=== PATIENT | female | born 1960 | race Caucasian/White ===

== ENCOUNTER 2019-03-11 17:18 | Emergency (ER) | payer OTHER ==
[2019-03-11] MEDS ORDERED: Acetaminophen TAB* 325 MG PO ONE (17:31)
--- NOTE | 2019-03-11 17:33 | UC ---
Lower Extremity/Ankle HPI - HPI Summary HPI Summary: 1 hour ago, pt tripped going down step and twisted R ankle, now has pain lateral foot and ankle. can bear weight but with great pain. states she heard a "pop" - History of Current Complaint Stated Complaint: RIGHT ANKLE INJURY Time Seen by Provider: 03/11/19 17:19 Hx Obtained From: Patient ?: No Onset/Duration: Sudden Onset Severity Initially: Severe Severity Currently: Moderate Aggravating Factor(s): Standing, Ambulation Alleviating Factor(s): Elevation, Ice Able to Bear Weight: Yes - Allergies/Home Medications Allergies/Adverse Reactions: Allergies Allergy/AdvReac Type Severity Reaction Status Date / Time NSAIDS (Non-Steroidal Allergy Unknown Verified 03/11/19 17:39 Anti-Inflamma Reaction Details Home Medications: Home Medications Albuterol HFA INHALER* [Ventolin HFA Inhaler*] 1 puff INH Q4H PRN 03/11/19 [ History Confirmed 03/11/19] Fluticasone Propionate Diskus [Flovent Diskus] 50 mcg IH DAILY 03/11/19 [ History Confirmed 03/11/19] Hydrochlorothiazide TAB* [Hydrodiuril TAB*] 25 mg PO DAILY 03/11/19 [History Confirmed 03/11/19] Irbesartan 75 mg PO DAILY 03/11/19 [History Confirmed 03/11/19] Melatonin 6 mg PO BEDTIME 03/11/19 [History Confirmed 03/11/19] Nadolol [Corgard] 20 mg PO DAILY 03/11/19 [History Confirmed 03/11/19] PMH/Surg Hx/FS Hx/Imm Hx Previously Healthy: Yes Cardiovascular History: Hypertension Respiratory History: Asthma - Family History Known Family History: Positive: Non-Contributory - Social History Occupation: Unemployed Lives: With Family Alcohol Use: Rare Substance Use Type: None Smoking Status (MU): Never Smoked Tobacco Review of Systems All Other Systems Reviewed And Are Negative: Yes Constitutional: Positive: Negative Respiratory: Positive: Negative Cardiovascular: Positive: Negative Musculoskeletal: Positive: Decreased ROM - R ankle Neurological: Positive: Negative Psychological: Positive: Negative Is Patient Immunocompromised?: No Physical Exam Triage Information Reviewed: Yes Appearance: Well-Appearing, Obese Vital Signs Reviewed: Yes Respiratory Exam: Normal Respiratory: Positive: Lungs clear Cardiovascular Exam: Normal Cardiovascular: Positive: RRR, Pulses Normal Musculoskeletal: Positive: ROM Limited @ - R ankle d/t pain, Other: - pain with palpation lateral R foot and lateral malleolus, ecchymosis latral foot, sweeling ankle Neurological Exam: Normal Psychological Exam: Normal Procedures - Splinting Right Lower Extremity Hand-Made Type: orthoglass Splint: posterior short leg Pre-Proc Neuro Vasc Exam: normal Post-Proc Neuro Vasc Exam: normal Lower Extremity Course/Dx - Differential Dx/Diagnosis Differential Diagnosis/HQI/PQRI: Fracture (Closed), Sprain, Strain Provider Diagnosis: Foot fracture, right, Fibula fracture Discharge - Sign-Out/Discharge Documenting (check all that apply): Patient Departure All imaging exams completed and their final reports reviewed: No - Discharge Plan Condition: Stable Disposition: HOME Patient Education Materials: Ankle Fracture (ED), Foot Fracture in Adults (ED) Referrals: Nohelia Hamlin NP [Primary Care Provider] - Mac Bledsoe MD [Medical Doctor] - Additional Instructions: ice and elevate leg use Tylenol as directed for pain do not put weight on foot, use crutches follow-up with orthopedics: call on Wednesday your x-rays will be read by the radiologist tomorrow and we will contact you if they find anything other than what we told you today - Billing Disposition and Condition Condition: STABLE Disposition: Home - Attestation Statements Provider Attestation: I was available for consult. This patient was seen by the RENETTA. The patient was not presented to, seen by, or examined by me. -Charan
[2019-03-11 17:45] VITALS: BP 140/82
--- NOTE | 2019-03-12 08:24 | UC ---
- Progress Note Progress Note: Patient Name: ANITHA SHER Medical Record#: [id number] Ordering Physician: Lev Romero NP Acct.#: [id number] : 1960 Age: 59 Sex: F Location: [facility] Exam Date: 03/11/19 1723 ADM Status: [facility] ER Order Information: ANKLE RIGHT 3+VWS Accession Number: [id number] CPT: 77512 Indication: Right ankle injury 3 views of the right ankle demonstrates avulsion fracture of the distal fibula. Ankle mortise is intact. Soft tissue swelling is noted laterally. IMPRESSION: Avulsion fracture distal fibula. Soft tissue swelling is noted laterally. R1F Preliminary Imaging Read R1F <Electronically signed by Sophia Youngblood MD in OV> 03/12/19741 Dictated By: Sophia Youngblood MD Dictated Date/Time: 03/12/19741 Transcribed Date/Time: 03/12/19740 Copy to: CC:Libertad Lowe MD; Nohelia Hamlin NP; Lev Romero NP Imaging - [facility] Imaging - [facility] [address] [address] ph ([phone]) ph ([phone]) ph ([phone]) This report is only to be considered final once signed by the Provider(s) as displayed in the "<Electronically Signed by >" field (s). Absence of a signature indicates the report is in a draft status and still needs to be finalized. In the event this document was created by someone other than the signing Provider, the individual initiating the document will be listed in the "Entered by:" or "Dictated by:" quiroz. 1 of 1 Patient Name: ANITHA SHER Medical Record#: [id number] Ordering Physician: Lev Romreo NP Acct.#: [id number] : 1960 Age: 59 Sex: F Location: [facility] Exam Date: 03/11/19 1723 ADM Status: DEP ER Order Information: FOOT RIGHT 3+ VWS Accession Number: [id number] CPT: 21885 Indication: Right foot pain 3 views of the right foot demonstrates fracture at the base of the fifth metatarsal. No other fractures are identified. IMPRESSION: Fracture base of the fifth metatarsal. R1F Preliminary Imaging Read R1F <Electronically signed by Sophia Youngblood MD in OV> 03/12/19742 Dictated By: Sophia Youngblood MD Dictated Date/Time: 03/12/19742 Transcribed Date/Time: 03/12/19741 Copy to: CC:Libertad Lowe MD; Nohelia Hamlin NP; Lev Romero NP Imaging - [facility] Imaging - [facility] [address] [place] [address] ph ([phone]) ph ([phone]) ph ([phone]) This report is only to be considered final once signed by the Provider(s) as displayed in the "<Electronically Signed by >" field (s). Absence of a signature indicates the report is in a draft status and still needs to be finalized. In the event this document was created by someone other than the signing Provider, the individual initiating the document will be listed in the "Entered by:" or "Dictated by:" quiroz. 1 of 1 Course/Dx - Diagnoses Provider Diagnoses: Foot fracture, right, Fibula fracture Discharge - Sign-Out/Discharge Documenting (check all that apply): Post-Discharge Follow Up All imaging exams completed and their final reports reviewed: Yes - Discharge Plan Condition: Stable Disposition: HOME Patient Education Materials: Ankle Fracture (ED), Foot Fracture in Adults (ED) Referrals: Mac Bledsoe MD [Medical Doctor] - Nohelia Hamlin NP [Primary Care Provider] - Additional Instructions: ice and elevate leg use Tylenol as directed for pain do not put weight on foot, use crutches follow-up with orthopedics: call on Wednesday your x-rays will be read by the radiologist tomorrow and we will contact you if they find anything other than what we told you today - Billing Disposition and Condition Condition: STABLE Disposition: Home
== END 2019-03-11 19:00 | disposition home or self-care (01) ==
LOC: UCEAST 17:18
DX: S92.351A Displaced fracture of fifth metatarsal bone, right foot, initial encounter for closed fracture (principal); S82.831A Other fracture of upper and lower end of right fibula, initial encounter for closed fracture; W10.9XXA Fall (on) (from) unspecified stairs and steps, initial encounter; Y92.9 Unspecified place or not applicable; I10 Essential (primary) hypertension; E66.9 Obesity, unspecified
CPT/HCPCS: 99213; A9270-GY; G0463

== ENCOUNTER 2019-08-15 16:43 | Emergency (ER) | payer OTHER ==
--- OUTSIDE RECORDS SUMMARY | 2019-08-15 16:50 | XMS REPORT | Continuity of Care Document ---
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 Onset: 07/10/2014 Essential hypertension Nohelia Hamlin, N.P. Onset: 08/04/2016 Achilles tendinitis, right leg Cuba Freire MD Onset: 06/07/2019 Closed fracture of metatarsal bone Cuba Freire MD Onset: 03/15/2019 Closed fracture of lateral malleolus Cuba Freire MD Onset: 03/15/2019 Social History Type Date Description Comments Sex Unknown ETOH Use Denies alcohol use Tobacco Use Start: Unknown Patient has never smoked Smoking Status Reviewed: 08/03/19 Patient has never smoked Allergies, Adverse Reactions, Alerts Active Allergies Reaction Severity Comments Date NSAIDs 04/25/2014 Inactive Allergies NKDA 12/24/2010 Medications Active Medications SIG Qnty Indications Ordering Date Provider Azithromycin take 2 tablets 6tabs R05 Chely 08/03/2019 250mg Tablets on day 1, then 1 MD Carter tab daily for days 2-5 Irbesartan take 1 tablet by 30tabs I10 Nohelia Childersyusuf, 04/07/2018 75mg Tablets mouth every N.P. morning Astelin 1-2 intranasal 30units Nohelia Childersyusuf, 09/17/2016 137mcg/[place] Solution puffs daily N.P. Nystop after cleansing 30units Nohelia Hamlin, 10/12/2014 [id number]/GM Powder and drying the N.P. affected area, apply the powder. use 2-3 times daily for 7 days. Ventolin HFA 2 puffs by mouth 8gm Nohelia Childersyusuf, 08/24/2014 108(90Base) four times a day N.P. mcg/Act Aerosol as needed Flovent HFA 2 puffs inhaled 12units Nohelia Childersyusuf, 10/07/2012 110mcg/Act Aerosol twice a day N.P. Omeprazole as Needed Unknown 20mg Capsules DR Melatonin 1 tablets at bed Unknown 5mg Capsules time Nadolol take 1 tablet by 90tabs Nohelia Hamlin, 20mg Tablets mouth once daily N.P. Hydrochlorothiazide take 1 tablet by 90tabs Nohelia Hamlin, 25mg mouth once daily N.P. Tablets Immunizations CPT Code Status Date Vaccine Lot # [id number] Given 10/07/2012 Fluvirin Im 3Yrs And Older [id number] 98129 Given 09/19/2009 Influenza Virus Vaccine, Pandemic Formulation 16316 Given 09/19/2009 Influenza Virus 3Yrs & Over 36618 Given 09/19/2009 Administration Swine Flu Shot 28691 Given 10/18/2007 Tdap - Tetanus/Diptheria/Acellular Pertussis 62964 Given 10/18/2007 Tdap - Tetanus/Diptheria/Acellular Pertussis 60058 Given 06/28/2006 Influenza Virus 3Yrs & Over 05154 Given 06/28/2006 Influenza Virus 3Yrs & Over Vital Signs Date Vital Result Comment 08/03/2019 3:47pm Body Temperature 98.4 F 08/03/2019 3:33pm Height 65.5 inches 5'5.50" Weight 205.25 lb Heart Rate 79 /min BP Systolic Sitting 150 mmHg BP Diastolic Sitting 80 mmHg O2 % BldC Oximetry 98 % BMI (Body Mass Index) 33.6 kg/m2 Results Description No Information Available Procedures Date Code Description Status 09/27/2009 96029081 Mammogram Completed Medical Devices Description No Information Available Encounters Type Date Location Provider Dx Diagnosis Office Visit 06/07/2019 [facility] [place] Freire, M76.61 Achilles 3:30p at [place] tendinitis, right leg S82.64xD Nondisp fx of lateral malleolus of r fibula, 7thD S92.351D Disp fx of 5th metatarsal bone, r ft, 7thD Office Visit 04/26/2019 [place] Freire, S82.64xD Nondisp fx of 1:30p Orthopedics at [facility] malleolus of r fibula, 7thD S92.351D Disp fx of 5th metatarsal bone, r ft, 7thD Office Visit 03/31/2019 1:40p Care Provider Internal Nohelia Hamlin, I10 Essential ( primary) Medicine - [facility] N.P. hypertension J45.20 Mild intermittent asthma, uncomplicated Office Visit 03/15/2019 [place] Freire, S82.64xA Nondisp fx of 2:45p Orthopedics at [facility] malleolus of right fibula, init S92.351A Disp fx of fifth metatarsal bone, right foot, init Assessments Date Code Description Provider 08/03/2019 R05 Cough Chely Machado MD 08/03/2019 I10 Essential (primary) hypertension Chely Machado MD 08/03/2019 J45.20 Mild intermittent asthma, uncomplicated Chely Machado MD 06/07/2019 M76.61 Achilles tendinitis, right leg [place] Freire MD 06/07/2019 S82.64xD Nondisplaced fracture of lateral malleolus of [place] Freire MD right fibula, subsequent encounter for closed fracture with routine healing 06/07/2019 S92.351D Displaced fracture of fifth metatarsal bone, [place] Freire MD right foot, subsequent encounter for fracture with routine healing 04/26/2019 S82.64xD Nondisplaced fracture of lateral malleolus of [place] Freire MD right fibula, subsequent encounter for closed fracture with routine healing 04/26/2019 S92.351D Displaced fracture of fifth metatarsal bone, [place] Freire MD right foot, subsequent encounter for fracture with routine healing 03/31/2019 I10 Essential (primary) hypertension Nohelia Hamlin, N.P. 03/31/2019 J45.20 Mild intermittent asthma, uncomplicated Nohelia Hamlin N.P. 03/15/2019 S82.64xA Nondisplaced fracture of lateral malleolus of [place] Freire MD right fibula, 03/15/2019 S92.351A Displaced fracture of fifth metatarsal bone, [place] Freire MD right foot, ini Plan of Treatment Future Appointment(s):08/09/2019 2:20 pm - [facility]P. [facility] - Chely Machado, MDR05 CoughNew Medication: Azithromycin 250 mg - take 2 tablets on day 1, then 1 tab daily for days 2-5I10 Essential (primary) jftubqxcnyapZ00.20 Mild intermittent asthma, uncomplicated Functional Status Description No Information Available Mental Status Description No Information Available Referrals Description No Information Available
--- OUTSIDE RECORDS SUMMARY | 2019-08-15 16:50 | XMS REPORT | Continuity of Care Document ---
:1960 External Reference #:[id number] Author Name Nohelia Hamlin N.P. (transmitted by agent of provider Carolina Adams) Address [address], [place] [address] Care Team Providers Name Role Phone Gregoria Schmitt MD - Internal Care Team Information Business Management Consultant [phone] Medicine Problems Active Problems Provider Date Benign essential hypertension Dianelys Cannon M.D., FACP Onset: 12/24/2010 Asthma without status asthmaticus Dianelys Cannon M.D., FACP Onset: 12/24/2010 Benign paroxysmal positional vertigo Dianelys Cannon M.D., FACP Onset: 2010 Anemia Dianelys Cannon M.D., FACP Onset: 12/24/2010 Migraine Dianelys Cannon M.D., FACP Onset: 12/24/2010 Basal cell carcinoma of skin Nohelia Hamlin N.PMaggie Onset: 07/10/2014 Essential hypertension Nohelia Hamlin N.Ar Onset: 08/04/2016 Achilles tendinitis, right leg Cuba Freire MD Onset: 06/07/2019 Closed fracture of metatarsal bone Cuba Freire MD Onset: 03/15/2019 Closed fracture of lateral malleolus Cuba Freire MD Onset: 03/15/2019 Social History Type Date Description Comments Sex Unknown ETOH Use Denies alcohol use Tobacco Use Start: Unknown Patient has never smoked Smoking Status Reviewed: 08/08/19 Patient has never smoked Allergies, Adverse Reactions, Alerts Active Allergies Reaction Severity Comments Date NSAIDs 04/25/2014 Inactive Allergies NKDA 12/24/2010 Medications Active Medications SIG Qnty Indications Ordering Date Provider Prednisone 4 tablets by 40tabs J45.21 Nohelia Hamlin, 08/08/2019 10mg Tablets mouth for 4 N.P. days,3 tablets by mouth for 4 days, 2 tablets by mouth for 4 days, 1 tablet by mouth for 4 days Ipratropium 1 vial in 180ml J45.21 Nohelia Childersyusuf, 08/08/2019 [place]/Albuterol Sulfate nebulizer three N.P. times a day as 0.5-2.5(3)mg/3ML Solution needed for asthma Nebulizer Use tid prn 1unca J45.21 Nohelia Yakelin, 08/08/2019 [facility] asthma N.P. Nebulizer to use with 1unca J45.21 Nohelia Childersyusuf, 08/08/2019 Kit/Tubing/Mouthpiece nebulizer N.P. Kit Azithromycin take 2 tablets 6tabs R05 Chely 08/03/2019 250mg Tablets on day 1, then 1 MD Carter tab daily for days 2-5 Irbesartan take 1 tablet by 30tabs I10 Nohelia Hamlin, 04/07/2018 75mg Tablets mouth every N.P. morning Astelin 1-2 intranasal 30un Nohelia Yakelin, 09/17/2016 137mcg/[place] Solution puffs daily N.P. Nystop after cleansing 30un Nohelia Yakelin, 10/12/2014 330952Scjw/GM Powder and drying the N.P. affected area, apply the powder. use 2-3 times daily for 7 days. Ventolin HFA 2 puffs by mouth 8gm Nohelia Hamlin, 08/24/2014 108(90Base) four times a day N.P. mcg/Act Aerosol as needed Flovent HFA 2 puffs inhaled 12un Nohelia Hamlin, 10/07/2012 110mcg/Act Aerosol twice a day N.P. Omeprazole as Needed Unknown 20mg Capsules DR Melatonin 1 tablets at bed Unknown 5mg Capsules time Nadolol take 1 tablet by 90tabs Nohelia Varn, 20mg Tablets mouth once daily N.P. Hydrochlorothiazide take 1 tablet by 90tabs Nohelia Yakelin, 25mg mouth once daily N.P. Tablets Immunizations CPT Code Status Date Vaccine Lot # [id number] Given 10/07/2012 Fluvirin Im 3Yrs And Older [id number] 75278 Given 09/19/2009 Influenza Virus Vaccine, Pandemic Formulation 18033 Given 09/19/2009 Influenza Virus 3Yrs & Over 24384 Given 09/19/2009 Administration Swine Flu Shot 86599 Given 10/18/2007 Tdap - Tetanus/Diptheria/Acellular Pertussis 35704 Given 10/18/2007 Tdap - Tetanus/Diptheria/Acellular Pertussis 05666 Given 06/28/2006 Influenza Virus 3Yrs & Over 98613 Given 06/28/2006 Influenza Virus 3Yrs & Over Vital Signs Date Vital Result Comment 08/08/2019 2:05pm Weight 204.25 lb Heart Rate 72 /min BP Systolic Sitting 133 mmHg BP Diastolic Sitting 88 mmHg Body Temperature 98.3 F O2 % BldC Oximetry 97 % 08/03/2019 3:47pm Body Temperature 98.4 F Results Description No Information Available Procedures Date Code Description Status 09/27/2009 [id number] Mammogram Completed Medical Devices Description No Information Available Encounters Type Date Location Provider Dx Diagnosis Office Visit 06/07/2019 [facility] Cuba Tani, M76.61 Achilles 3:30p at [place] tendinitis, right leg S82.64xD Nondisp fx of lateral malleolus of r fibula, 7thD S92.351D Disp fx of 5th metatarsal bone, r ft, 7thD Office Visit 04/26/2019 [place] Freire, S82.64xD Nondisp fx of 1:30p Orthopedics at [facility] malleolus of r fibula, 7thD S92.351D Disp fx of 5th metatarsal bone, r ft, 7thD Office Visit 03/31/2019 1:40p Lab Rep Internal Nohelia Hamlin, I10 Essential ( primary) Medicine - Ccmob N.P. hypertension J45.20 Mild intermittent asthma, uncomplicated Office Visit 03/15/2019 [place] Freire, S82.64xA Nondisp fx of 2:45p Orthopedics at [facility] malleolus of right fibula, init S92.351A Disp fx of fifth metatarsal bone, right foot, init Assessments Date Code Description Provider 08/08/2019 J45.21 Mild intermittent asthma with (acute) Nohelia Varn, N.P. exacerbation 08/03/2019 R05 Cough Chely Machado MD 08/03/2019 [...] 03/31/2019 J45.20 Mild intermittent asthma, uncomplicated Nohelia Hamlin, N.P. 03/15/2019 S82.64xA Nondisplaced fracture of lateral malleolus of [place] Freire MD right fibula, 03/15/2019 S92.351A Displaced fracture of fifth metatarsal bone, [place] Freire MD right foot, ini Plan of Treatment 08/08/2019 - Nohelia Varn, N.P.J45.21 Mild intermittent asthma with (acute) exacerbationNew Medication:Prednisone 10 mg - 4 tablets by mouth for 4 days,3 tablets by mouth for 4 days, 2 tablets by mouth for 4 days, 1 tablet by mouth for 4 daysIpratropium [place]/Albuterol Sulfate 0.5-2.5(3) mg/3ML - 1 vial in nebulizer three times a day as needed for asthmaNebulizer - Use tid prn asthmaNebulizer Kit/Tubing/Mouthpiece - to use with nebulizerComments:For your asthma flare I have prescribed a course of Prednisone 10 mg. Take 4 tablets for 4 days, 3 tablets fro 4 days, 2 tablets for 4 days, then 1 tablet for 4 days. I have prescribed a nebulizer, usethis 3 times daily as needed.If you do not gradually improve, please contact the office. Functional Status Description No Information Available Mental Status Description No Information Available Referrals Description No Information Available
--- OUTSIDE RECORDS SUMMARY | 2019-08-15 16:50 | XMS REPORT | Continuity of Care Document ---
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 Medicine Problems Active Problems Provider Date Benign [...] Patient has never smoked Smoking Status Reviewed: 08/15/19 Patient has never smoked Allergies, Adverse Reactions, Alerts Active Allergies Reaction Severity Comments Date NSAIDs 04/25/2014 Inactive Allergies NKDA 12/24/2010 Medications Active Medications SIG Qnty Indications Ordering Date Provider Prednisone 4 tablets by 40tabs J45.21 Dianelys Cannon, 08/08/2019 10mg Tablets mouth for 4 M.D., FACP days,3 tablets by mouth for 4 days, 2 tablets by mouth for 4 days, 1 tablet by mouth for 4 days Ipratropium 1 vial in 180ml J45.21 Nohelia Yakelin, 08/08/2019 [place]/Albuterol Sulfate nebulizer three N.P. times a day as 0.5-2.5(3)mg/3ML Solution needed for asthma Nebulizer Use tid prn 1unca J45.21 Nohelia Yakelin, 08/08/2019 [facility] [place] N.P. Nebulizer to use with 1unca J45.21 Nohelia Yakelin, 08/08/2019 Kit/Tubing/Mouthpiece nebulizer N.P. Kit Irbesartan take 1 tablet by 30tabs I10 Nohelia Hamlin, 04/07/2018 75mg Tablets mouth every N.P. morning Astelin 1-2 intranasal 30units Nohelia Hamlin, 09/17/2016 137mcg/Mondamin Solution puffs daily N.P. Nystop after cleansing 30units Nohelia Hamlin, 10/12/2014 [id number]/GM Powder and drying the N.P. affected area, apply the powder. use 2-3 times daily for 7 days. Ventolin HFA 2 puffs by mouth 8gm Nohelia Hamlin, 08/24/2014 108(90Base) four times a day N.P. mcg/Act Aerosol as needed Flovent HFA 2 puffs inhaled 12units Nohelia Hamlin, 10/07/2012 110mcg/Act Aerosol three times a N.P. day Omeprazole as Needed Unknown 20mg Capsules DR Melatonin 1 tablets at bed Unknown 5mg Capsules time Nadolol take 1 tablet by 90tabs Nohelia Hamlin, 20mg Tablets mouth once daily N.P. Hydrochlorothiazide take 1 tablet by 90tabs Nohelia Hamlin, 25mg mouth once daily N.P. Tablets History Medications Azithromycin take 2 tablets on 6tabs R05 Chely Machado, 08/03/2019 - 250mg day 1, then 1 tab MD 08/15/2019 Tablets daily for days 2-5 Immunizations CPT Code Status Date Vaccine Lot # [id number] Given 10/07/2012 Fluvirin Im 3Yrs And Older [id number] Given 09/19/2009 Influenza Virus Vaccine, Pandemic Formulation 25517 Given 09/19/2009 Influenza Virus 3Yrs & Over 36541 Given 09/19/2009 Administration Swine Flu Shot 73970 Given 10/18/2007 Tdap - Tetanus/Diptheria/Acellular Pertussis 09284 Given 10/18/2007 Tdap - Tetanus/Diptheria/Acellular Pertussis 28870 Given 06/28/2006 Influenza Virus 3Yrs & Over 06829 Given 06/28/2006 Influenza Virus 3Yrs & Over Vital Signs Date Vital Result Comment 08/15/2019 3:15pm Height 65.5 inches 5'5.50" Weight 203.38 lb Heart Rate 114 /min BP Systolic 170 mmHg 160/111 BP Diastolic 107 mmHg 160/111 Body Temperature 99.4 F O2 % BldC Oximetry 95 % BMI (Body Mass Index) 33.3 kg/m2 08/08/2019 2:05pm Weight 204.25 lb Heart Rate 72 /min BP Systolic Sitting 133 mmHg BP Diastolic Sitting 88 mmHg Body Temperature 98.3 F O2 % BldC Oximetry 97 % Results Description No Information Available Procedures Date Code Description Status 09/27/2009 44496648 Mammogram Completed Medical Devices Description No Information Available Encounters Type Date Location Provider Dx Diagnosis Office Visit 06/07/2019 [facility] Cubamariel Freire, M76.61 Achilles 3:30p at [place] tendinitis, right leg S82.64xD Nondisp fx of lateral malleolus of r fibula, 7thD S92.351D Disp fx of 5th metatarsal bone, r ft, 7thD Office Visit 04/26/2019 Ryan Freire, S82.64xD Nondisp fx of 1:30p Orthopedics at lateral [place] malleolus of r fibula, 7thD S92.351D Disp fx of 5th metatarsal bone, r ft, 7thD Office Visit 03/31/2019 1:40p [facility] Nohelia Varn, I10 Essential ( primary) Medicine - Ccmob N.P. hypertension J45.20 Mild intermittent asthma, uncomplicated Office Visit 03/15/2019 Ryan Freire, S82.64xA Nondisp fx of 2:45p Orthopedics at [facility] [place] [place] malleolus of right fibula, init S92.351A Disp fx of fifth metatarsal bone, right foot, init Assessments Date Code Description Provider 08/15/2019 R05 Cough Dianelys Cannon M.D., FACP 08/08/2019 J45.21 Mild intermittent asthma with (acute) Nohelia Varn, N.P. exacerbation 08/03/2019 R05 Cough Chely Machado MD 08/03/2019 I10 Essential (primary) hypertension Chely Machado MD 08/03/2019 J45.20 Mild intermittent asthma, uncomplicated Chely Machado MD 06/07/2019 M76.61 Achilles tendinitis, right leg [place] Freire MD 06/07/2019 S82.64xD Nondisplaced fracture of jenn Freire MD malleolus of right fibula, subsequent encounter for closed fracture with routine healing 06/07/2019 S92.351D Displaced fracture of margarita Freire MD bone, right foot, subsequent encounter for fracture with routine healing 04/26/2019 S82.64xD Nondisplaced fracture of jenn Freire MD malleolus of right fibula, subsequent encounter for closed fracture with routine healing 04/26/2019 S92.351D Displaced fracture of margarita Freire MD bone, right foot, subsequent encounter for fracture with routine healing 03/31/2019 I10 Essential (primary) hypertension Nohelia Hamlin, N.P. 03/31/2019 J45.20 Mild intermittent asthma, uncomplicated Nohelia Varn, N.P. 03/15/2019 S82.64xA Nondisplaced fracture of jenn Freire MD malleolus of right fibula, 03/15/2019 S92.351A Displaced fracture of fifth metatarsnaif Freire MD bone, right foot, ini Plan of Treatment 08/15/2019 - Dianelys Cannon M.D., FACPR05 CoughComments:COUGH:I am concerned that your symptoms might warrant hospitalization if you do not have improvementon the higher dose of Prednisone today.I would like to obtain a CXR today. I will contact you with the results as soon as I get them.It is very important that you stay well hydrated.I understand that the nebulizers make you feel like your heart races but try to keep using them three times daily.You might benefit from a medication called guaifenisen (OTC = Mucinex) which should help thin out your secretions. An air purifier running in your bedroom might be helpful.You took 30mg of the Prednisone this morning. When you get home take another 30mg (3 tabs). Tomorrow morning take 60mg all at once.I would really recommend you have someone be with you overnight.If you feel like your breathing becomesmore labored or the cough is worse, you should go to the Emergency Department.Follow up:This Wednesday Functional Status Description No Information Available Mental Status Description No Information Available Referrals Description No Information Available
--- NOTE | 2019-08-15 17:20 | UC ---
Respiratory Complaint HPI - HPI Summary HPI Summary: 59 yo woman with history of asthma exacerbation, without consistent response to antibiotics, steroids, nebulizers. She was seen by Dr. [facility] today, and chest xray ordered, showing a complete left pneumothorax. She has had left chest pain and tightness since a severe coughing spell the evening of 08/13/19 - History of Current Complaint Chief Complaint: UCRespiratory Stated Complaint: RESP COMPLAINT Time Seen by Provider: 08/15/19 16:59 Hx Obtained From: Patient Onset/Duration: Sudden Onset Timing: Constant Severity Initially: Moderate Severity Currently: Severe Pain Intensity: 4 Character: Cough: Nonproductive Alleviating Factors: Bronchodilator, Nothing Associated Signs And Symptoms: Positive: Dyspnea, Wheezing - Risk Factors Pulmonary Embolism Risk Factors: Negative Cardiac Risk Factors: Hypertension - Allergies/Home Medications Allergies/Adverse Reactions: Allergies Allergy/AdvReac Type Severity Reaction Status Date / Time NSAIDS (Non-Steroidal Allergy Unknown Verified 08/15/19 16:54 Anti-Inflamma Reaction Details Home Medications: Home Medications Albuterol 2.5MG/3ML (0.083%)* [Ventolin 2.5 MG/3 ML NEB.ZOILA*] 08/15/19 [ History Confirmed 08/15/19] predniSONE TAB* [Deltasone 1 MG TAB*] 08/15/19 [History] PMH/Surg Hx/FS Hx/Imm Hx Cardiovascular History: Hypertension Respiratory History: Asthma - Surgical History Surgical History: Yes Surgery Procedure, Year, and Place: deviated septum, bilat cataracts - Family History Known Family History: Positive: Non-Contributory - Social History Occupation: Employed Full-time Lives: With Family Alcohol Use: None Substance Use Type: None Smoking Status (MU): Never Smoked Tobacco Review of Systems All Other Systems Reviewed And Are Negative: Yes Constitutional: Positive: Fatigue Skin: Positive: Negative Eyes: Positive: Negative ENT: Positive: Negative Respiratory: Positive: Shortness Of Breath, Cough Cardiovascular: Positive: Chest Pain Gastrointestinal: Positive: Negative Genitourinary: Positive: Negative Motor: Positive: Negative Neurovascular: Positive: Negative Musculoskeletal: Positive: Arthralgia Neurological: Positive: Negative Psychological: Positive: Negative Is Patient Immunocompromised?: No Physical Exam Triage Information Reviewed: Yes Appearance: Well-Nourished, Pain Distress - mild Vital Signs: Initial Vital Signs Temp 98.8 F 08/15/19 16:50 Pulse 108 08/15/19 16:50 Resp 18 08/15/19 16:50 BP 156/106 08/15/19 16:50 Pulse Ox 93 08/15/19 16:50 Eye Exam: Normal ENT: Positive: Pharynx normal, Other - trachea midline Neck: Positive: Supple, Nontender, No Lymphadenopathy Respiratory Exam: Other - absent left breath sounds, trachea midline Respiratory: Positive: No accessory muscle use, Decreased breath sounds - absent on the left Cardiovascular: Positive: No Murmur, Tachycardia Musculoskeletal Exam: Normal Neurological Exam: Normal Psychological Exam: Normal Skin Exam: Normal Diagnostics - Laboratory Lab Results: chest xray shows almost complete left pneuomothorax. Respiratory Course/Dx - Course Course Of Treatment: Transferred to ER by ambulance for treatment of left pneumothorax. - Differential Dx/Diagnosis Differential Diagnosis/HQI/PQRI: Asthma, Pneumothorax, Other Provider Diagnosis: Pneumothorax, left Discharge ED - Sign-Out/Discharge Documenting (check all that apply): Patient Departure All imaging exams completed and their final reports reviewed: Yes - Discharge Plan Condition: Stable Disposition: TRANS HIGHER LVL OF CARE FAC Referrals: Nohelia Hamlin NP [Primary Care Provider] - - Billing Disposition and Condition Condition: STABLE Disposition: Trans Higher Lvl of Care Fac
[2019-08-15 18:07] VITALS: BP 148/113
== END 2019-08-15 17:48 | disposition short-term general hospital (02) ==
LOC: UCEAST 16:43
DX: J93.9 Pneumothorax, unspecified (principal); R53.83 Other fatigue; I10 Essential (primary) hypertension; J45.909 Unspecified asthma, uncomplicated; Z79.52 Long term (current) use of systemic steroids; Z88.6 Allergy status to analgesic agent
CPT/HCPCS: 99213; G0463

== ENCOUNTER 2019-08-15 18:07 | Emergency (ER) | payer OTHER ==
[2019-08-15] MEDS ORDERED: Lidocaine 1% INJ* 10 MG/ML 30 ML SDV INJ ONE (18:21)
--- NOTE | 2019-08-15 19:18 | ED ---
HPI Chest Pain - HPI Summary HPI Summary: Patient is a 59 y/o F presenting to the ED for a chief complaint of midsternal chest pain that began on the night of 08/13/19. At that time, she notes feeling a pulling and snapping sensation in her chest. She rates the pain as 4/10 in severity and notes the pain radiates to the left shoulder. She also reports a cough. She denies any aggravating or alleviating factors. Patient was seen at Urgent Care and sent to [facility] after she was found to have a left-sided pneumothorax. PMHx is significant for asthma, vertigo, and rheumatic fever at 5 y/o. She denies complications from asthma in the past. FMHx is significant for cardiac disease, HTN, and [place] in her brother, but denies DM. She denies tobacco, alcohol, or drug use, but she does admit tobacco exposure in her childhood from her parents. - History of Current Complaint Chief Complaint: EDChestWallPain Time Seen by Provider: 08/15/19 18:18 Hx Obtained From: Patient Onset/Duration: Atraumatic, Still Present Timing: Constant Initial Severity: Moderate Current Severity: Moderate Pain Intensity: 4 Pain Scale Used: 0-10 Numeric Chest Pain Location: Mid Sternal Chest Pain Radiates: Yes Chest Pain Radiates To:: Shoulder - Left Character: Other: - Pulling and snapping Aggravating Factor(s): Nothing Alleviating Factor(s): Nothing Associated Signs and Symptoms: Positive: Chest Pain, Cough - Allergy/Home Medications Allergies/Adverse Reactions: Allergies Allergy/AdvReac Type Severity Reaction Status Date / Time NSAIDS (Non-Steroidal Allergy Unknown Verified 08/15/19 18:13 Anti-Inflamma Reaction Details PMH/Surg Hx/FS Hx/Imm Hx Previously Healthy: Yes Endocrine/Hematology History: Reports: Other Endocrine/Hematological Disorders - Rheumatic fever at 5 y/o Denies: Hx Diabetes Cardiovascular History: Reports: Hx Hypertension Denies: Hx Hypercholesterolemia Respiratory History: Reports: Hx Asthma Sensory History: Denies: Hx Legally Blind, Hx Deafness Opthamlomology History: Denies: Hx Legally Blind EENT History: Denies: Hx Deafness Neurological History: Reports: Other Neuro Impairments/Disorders - Vertigo - Surgical History Surgical History: Yes Surgery Procedure, Year, and Place: deviated septum, bilat cataracts - Immunization History Date of Tetanus Vaccine: unk Date of Influenza Vaccine: none Infectious Disease History: No Infectious Disease History: Denies: Traveled Outside the [place] in Last 30 Days - Family History Known Family History: Positive: Cardiac Disease, Hypertension, Other - [place] Negative: Diabetes - Social History Occupation: Works From/At Home Lives: With Family Alcohol Use: None Hx Substance Use: No Substance Use Type: Reports: None Hx Tobacco Use: No Smoking Status (MU): Never Smoked Tobacco Household Exposure: Yes - In childhood Review of Systems Positive: Chest Pain - Midsternal Positive: Cough Positive: Arthralgia - Left shoulder that radiates from the chest All Other Systems Reviewed And Are Negative: Yes Physical Exam - Summary Physical Exam Summary: Constitutional: Well-developed, Well-nourished, Alert. (-) Distressed Skin: Warm, Dry HENT: Normocephalic; Atraumatic Eyes: Conjunctiva normal Neck: Musculoskeletal ROM normal neck. (-) JVD, (-) Stridor, (-) Nuchal rigidity Cardio: Rhythm regular, rate normal, Heart sounds normal; Intact distal pulses; Radial pulses are 2+ and symmetric. (-) Murmur Pulmonary/Chest wall: Effort normal. (-) Respiratory distress, (-) Wheezes, (-) Rales. No breath sounds on the left side. Abd: Soft, (-) tenderness, (-) Distension, (-) Guarding, (-) Rebound Musculoskeletal: (-) Edema Lymph: (-) Cervical adenopathy Neuro: Alert, Oriented x3 Psych: Mood and affect Normal Triage Information Reviewed: Yes Vital Signs On Initial Exam: Initial Vitals Temp Pulse Resp BP Pulse Ox 98.4 F 112 19 152/109 92 08/15/19 18:12 08/15/19 18:12 08/15/19 18:12 08/15/19 18:12 08/15/19 18:12 Vital Signs Reviewed: Yes Procedures - Sedation Patient Received Moderate/Deep Sedation with Procedure: No - Chest Tube Left Chest Tube Location: forth interspace Size of Nepali Tube (cm): 8 Chest Tube Procedure: betadine prep, sterile drapes applied Anesthesia: 1% Lidocaine Gama of Air [place]: Yes Number of Attempts: 1 Tube Drainage: see nurses notes Tube Sutured to Skin: Yes Post Procedure CXR?: Yes Diagnostics - Vital Signs Vital Signs Temp Pulse Resp BP Pulse Ox 08/15/19 18:12 98.4 F 112 19 152/109 92 - Laboratory Result Diagrams: 08/15/19 19:16 08/15/19 19:16 Lab Statement: Any lab studies that have been ordered have been reviewed, and results considered in the medical decision making process. - Radiology Chest X-ray 1 Radiology Interpretation Completed By: Radiologist Summary of Radiographic Findings: Chest X-ray 1 IMPRESSION: 1. Significant reduction in the size of the left pneumothorax after chest tube placement. 2. Tip of the chest tube not clearly identified. Reviewed by Dr. Yi. Chest X-ray 2 Radiology Interpretation Completed By: ED Physician Summary of Radiographic Findings: Chest X-ray 2 IMPRESSION: slight increase in the pneumothorax. Reviewed and interpreted by Dr. Yi, pending official radiology report. Chest X-ray Radiology Interpretation Completed By: Radiologist Summary of Radiographic Findings: Chest X-ray IMPRESSION: 1. Significant reduction in the size of the left pneumothorax after chest tube placement. 2. Tip of the chest tube not clearly identified. Reviewed by Dr. Yi. Re-Evaluation - Re-Evaluation First Eval Re-Evaluation Time: 21:09 Change: Unchanged Comment: At 21:09, I removed the chest tube as it was thought to be in subq tissue. Check CXR, likely transfer to [facility]. Second Re-Evaluation Time: 21:29 Change: Unchanged Comment: At 21:29, repeat XR shows slight inc in PTX, patient will likely need repeat chest tube, pending transfer to [facility]. Chest Pain Course/Dx - Course Course Of Treatment: 59 y/o F p/w large L sided PTX. - pig tail catheter placed w good gama of air, significant dec in PTX however on XR unable to visualize CT. Concern it may have gotten dislodged. - Pulled CT, plan for O2 repeat CXR and obs. Will d/w HM for admission vs transfer. - Diagnoses Provider Diagnoses: Pneumothorax - Provider Notifications Discussed Care Of Patient With: Raghav Brewer - At 21:54, Dr. Derek Hook agrees to accept the transfer to [facility] with a diagnosis of pneumothorax. Patient will be transferred for higher level of care and CT. At 21:59, Dr. Rosa is aware of the patient transfer. Time Discussed With Above Provider: 21:02 Instructed by Provider To: Transfer Discharge ED - Sign-Out/Discharge Documenting (check all that apply): Patient Departure - Transfer - Discharge Plan Condition: Stable Disposition: TRANS HIGHER LVL OF CARE FAC Referrals: Nohelia Hamlin NP [Primary Care Provider] - - Billing Disposition and Condition Condition: STABLE Disposition: Trans Higher Lvl of Care Fac - Attestation Statements Document Initiated by Scribe: Yes Documenting Scribe: Hilaria Keith Provider For Whom Slim is Documenting (Include Credential): Stephane Yi MD Scribe Attestation: IHilaria, scribed for Stephane Yi MD on 08/15/19 at 2205. Scribe Documentation Reviewed: Yes Provider Attestation: The documentation as recorded by the robinsonibHilaria mosher accurately reflects the service I personally performed and the decisions made by , Stephane Yi MD Status of Scribe Document: Viewed
[2019-08-15 19:22] LABS: ABS Basophils 0.1 10^3/ul (0-0.2); ABS Lymphocytes 1.5 10^3/ul (1.0-4.8); ABS Monocytes 0.2 10^3/ul (0-0.8); ABS Neutrophils 7.5 10^3/ul (1.5-7.7); Eosinophil % 0.2 %; Hematocrit 45 % (35-47); Hemoglobin 15.3 g/dL (12.0-16.0); Mean Corpuscular HGB Conc 34 g/dL (31-36); Mean Corpuscular Hemoglobin 29 pg (27-31); Mean Corpuscular Volume 85 fL (80-97); Mean Platelet Volume 6.8 fL (7.4-10.4); Nucleated Red Blood Cells % 0.1; Platelet Count 489 10^3/uL (150-450); Red Blood Count 5.28 10^6 /uL (3.70-4.87); Red Cell Distribution Width 13 % (10-15); White Blood Count 9.3 10^3/uL (3.5-10.8)
[2019-08-15] MEDS ORDERED: fentaNYL* 50 MCG/ML 2 ML VIAL (100 MCG VIAL) IV SLOW PU ONE (19:33)
[2019-08-15 19:42] LABS: Albumin 4.3 g/dL (3.2-5.2); Albumin/Globulin Ratio 1.4 (1-3); BUN/Creatinine Ratio 21.2 (8-20); Calcium 10.1 mg/dL (8.6-10.3); EGFR African American 82.8 (>60); EGFR Non-African American 68.5 (>60); Globulin 3.1 g/dL (2-4); Potassium 3.6 mmol/L (3.5-5.0); Total Bilirubin 0.6 mg/dL (0.2-1.0); Total Protein 7.4 g/dL (6.4-8.9)
[2019-08-16 00:25] VITALS: BP 168/107
== END 2019-08-16 00:31 | disposition short-term general hospital (02) ==
LOC: ED 18:07
DX: J93.9 Pneumothorax, unspecified (principal); R05 Cough; M25.512 Pain in left shoulder; I10 Essential (primary) hypertension; Z88.6 Allergy status to analgesic agent; Z82.49 Family history of ischemic heart disease and other diseases of the circulatory system
CPT/HCPCS: 32551; 36415; 71045; 71046; 80053; 85025; 96374; 99285; J3010